=== PATIENT | male | born 1980 | race Caucasian/White ===

== ENCOUNTER 2020-04-11 07:29 | Day surgery (SDC) | payer OTHER ==
[~2020-04-11] VITALS: Ht 177.8 cm; Wt 85.3 kg
[2020-04-11 08:22] VITALS: BP 141/90
[2020-04-11 14:41] VITALS: BP 137/84
== END 2020-04-11 14:30 | disposition home or self-care (01) ==
LOC: GI 07:29 → OR 13:00 → GI 13:00
PROVIDERS: ATTEND Internal Medicine Gastroenterology
DX: R13.10 Dysphagia, unspecified (principal); K22.2 Esophageal obstruction; E11.9 Type 2 diabetes mellitus without complications; I10 Essential (primary) hypertension; Z79.899 Other long term (current) drug therapy; Z79.4 Long term (current) use of insulin
CPT/HCPCS: 43235; J1200; J1610; J2250; J2310; J2405; J3010; J3490